=== PATIENT | female | born 1935 | race African-American/Black ===

== ENCOUNTER → 2016-10-10 | Outpatient (CLI) | payer MEDICARE, OTHER ==
[~2016-10-10] MED LIST: ACETAMINOPHEN PO; APRESOLINE PO; ASPIRIN81 M2 PO; BENADRYL25 M1 PO; BRILINTA90 MG PO; BUMEX1 MG PO; CENTRUM; CENTRUM PO; CHLORASEPTIC177 M1 MM; CHLORASEPTIC177 M1 PO; CLARITIN10 M3; CLARITIN10 M3 PO; CLOPIDOGREL75 MG PO; COZAAR PO; DEPAKOTE250 MG PO; DIFLUCAN PO; DOCUSATE SODIU100 MG PO; EXELON PO; EXELON6 MG PO; FLONASE 0.05% N16 G1; FLORASTORKIDS250 MG PO; GUAIFENESIN DM118 ML PO; HCTZ PO; HYDROCODON-ACE1 EAC7 PO; HYDROCODONE-APA1 T56 PO; IMDUR PO; IMDUR-ER60 M1 PO; IMODIUM2 MG PO; K-DUR10 MEQ PO; KCL PO; LANTUS100 U/ML SUBQ; LEVEMIR SUBQ; LEXAPRO PO; LEXAPRO20 MG PO; LIPITOR PO; LIPITOR40 MG PO; LISINOPRIL2.5 MG PO; LOPRESSOR PO; LORTAB 5-325 M1 EACH PO; MAALOX SUSPENS355 ML PO; MELATONIN10 M2 PO; METOPROLOL TAR25 MG PO; MILK OF MAGNESIA; MILK OF MAGNESIA PO; MUCINEX D ER T1 EAC1 PO; NAMENDA XR1 EACH PO; NAMENDA XR28 MG PO; NAMENDA10 MG; NEURONTIN100 MG PO; NORCO1 TAB 10/3; NOVOLOG100 U/M1; NOVOLOG100 U/M1 SQ; NOVOLOG100 U/ML SUBQ; NOVOLOG100 UNITS/ SUBQ; PANTOPRAZOLE SO40 MG PO; PLAVIX PO; PRILOSEC20 M1 PO; PROTONIX PO; RANITIDINE HCL150 M1; RIVASTIGMINE6 MG PO; ROBITUSSIN DM PO; SINGULAIR PO; SYNTHROID PO; SYNTHROID0.1 MG PO; SYNTHROID75 MCG; TOUJEO SOL300 UNIT/1; TRADJENTA5 MG PO; TRESIBA FL100 UNIT/1 SUBQ; TYL325 PO; TYLENOL325 M1; VITAMIN D-32000 UNI1 PO; VITAMIN D31000 UNIT PO; VITAMIN D50000 UNIT PO; ZANTAC150 M1 PO; ZANTAC150 MG PO; ZOFRAN PO; ZYRTEC PO; ZYRTEC10 M2 PO
--- NOTE | ~2016-10-10 | US77 ---
[facility] A Service of [facility] & [facility] RADIOLOGY TEXT RESULTS PATIENT: JUAN RONDON LOCATION: [facility] : 33 UNIT #: [id number] AGE: [address]: Abraham Hernandez MD SEX: F ORDER DR: [id number] [facility] [address] [place], [place] [address] [id number] O MR#: [id number] Acc #: [id number] NAME: JUAN RONDON : 1935 SEX: F STUDY DATE/TIME: 10/10/2016 14:46 UNIT: [facility] ROOM: STUDY DESCRIPTION: US Kidney Bilateral Complete Attending Physician: Claudy Hernandez M.D. Referring Physician: Claudy Hernandez M.D. Ordering Physician: Claudy Hernandez M.D. Primary Care Physician: Primary Care Physician No MEDICAL IMAGING REPORT This report is preliminary unless electronic signature is present EXAM Renal ultrasound 10/10/2016 HISTORY Chronic kidney disease stage 3. Diabetes and hypertension. FINDINGS The right kidney measures 8.8 cm while the left kidney measures 11.2 cm in longitudinal dimensions. There is no evidence of hydronephrosis or nephrolithiasis. There is a 2.8 cm x 2 cm x 1.9 cm indeterminate hypoechoic lesion on the left kidney. This contains internal echoes and cannot be classified as a cyst. Correlation with either renal MRI with gadolinium or CT scan of the kidneys with contrast using dedicated renal protocol is recommended to exclude renal neoplasm. If the patient's renal function does not improve recommend at a minimum followup renal ultrasound in 6 months to assess the lesion for stability. There is normal renal cortical echogenicity. Images of the bladder are normal. IMPRESSION 1. No evidence of hydronephrosis. 2. 2.8-cm indeterminate hypoechoic lesion on the left kidney. This contains internal echoes and cannot be classified as a cyst. Recommend correlation with either CT scan of the kidneys with contrast using dedicated renal protocol or renal MRI with gadolinium for further evaluation. If the patient's renal function does not improve, at a minimum, followup renal ultrasound should be performed in 6 months to assess the lesion for stability. 3. Images of the bladder are normal. Dictated by... Elias Vinson M.D. THIS IS AN ELECTRONICALLY VERIFIED REPORT [facility] A Service of [facility] RADIOLOGY TEXT RESULTS PATIENT: JUAN RONDON LOCATION: [facility] : 33 UNIT #: [id number] AGE: [address]: Abraham Hernandez MD SEX: F ORDER DR: Elias Vinson M.D. at 10/11/2016 7:41 AM KRT/to TD: 10/10/2016 16:24 JOB #: [id number] MEDICAL IMAGING REPORT Page 1 of 1 COPY
== END | disposition home or self-care (01) ==
LOC: CLAB 13:21
DX: N17.9 Acute kidney failure, unspecified (principal); N18.3 Chronic kidney disease, stage 3 (moderate); N28.89 Other specified disorders of kidney and ureter
CPT/HCPCS: 76770

== ENCOUNTER 2016-12-05 22:56 | Inpatient (IN) | payer MEDICARE, OTHER ==
--- NOTE | ~2016-12-05 | CR72 ---
[facility] A Service of [facility] RADIOLOGY TEXT RESULTS PATIENT: JUAN RONDON LOCATION: [place] [address] : 33 UNIT #: [id number] AGE: [address]: Eladia Guillen MD SEX: F ORDER DR: [id number] [facility] [address] [place], [place] [address] [id number] I MR#: [id number] Acc #: [id number] NAME: JUAN RONDON : 1935 SEX: F STUDY DATE/TIME: 12/06/2016 0:20 UNIT: C3A PCU ROOM: [address] [place] [address] DESCRIPTION: CR Chest Single View Portable Attending Physician: Eladia Guillen M.D. Ordering Physician: Lazarus Santillan Aprn Primary Care Physician: Primary Care Physician No MEDICAL IMAGING REPORT This report is preliminary unless electronic signature is present EXAM Portable chest INDICATION Shortness of air and cough for the past 3 days. PROCEDURE Frontal view chest. COMPARISON 04/06/2016. FINDINGS Cardiomegaly. No dense consolidation, pleural fluid or visible pneumothorax. IMPRESSION No active process. No change from 04/06/2016. Stable cardiomegaly. Dictated by... Karson Lim M.D. THIS IS AN ELECTRONICALLY VERIFIED REPORT Karson Lim M.D. at 12/06/2016 9:53 PM EED/gt TD: 12/06/2016 08:35 JOB #: [id number] MEDICAL IMAGING REPORT [facility] A Service of [facility] RADIOLOGY TEXT RESULTS PATIENT: JUAN RONDON LOCATION: [place] [address] : 33 UNIT #: [id number] AGE: [address]: Eladia Guillen MD SEX: F ORDER DR: Page 1 of 1 COPY
--- NOTE | ~2016-12-05 | CT57 ---
[facility] A Service of [facility] & [facility] RADIOLOGY TEXT RESULTS PATIENT: JUAN RONDON LOCATION: [facility] 337- : 33 UNIT #: [id number] AGE: [address]: Eladia Guillen MD SEX: F ORDER DR: [id number] [facility] [address] [place], [place] [address] [id number] I MR#: [id number] Acc #: [id number] NAME: JUAN RONDON : 1935 SEX: F STUDY DATE/TIME: 12/06/2016 13:07 UNIT: A U ROOM: [facility] STUDY DESCRIPTION: CT Chest Wo Cont Attending Physician: Eladia Guillen M.D. Ordering Physician: Eladia Guillen M.D. Primary Care Physician: Primary Care Physician No MEDICAL IMAGING REPORT This report is preliminary unless electronic signature is present EXAM CT the chest without contrast. INDICATIONS Shortness of breath and chest pain for 2 days. Patient had a chest radiograph performed this morning which showed a possible infiltrate within the right lower lobe. TECHNIQUE Axial CT images were obtained from the thoracic inlet to the dome of the diaphragm. No intravenous contrast material was administered. This CT exam was performed with one or more of the following radiation dose reduction techniques: automatic exposure control, adjustment of mA and/or kV according to patient size, and iterative reconstruction. FINDINGS This patient has an infiltrate within the right lower lobe measuring about 2.3 x 1.5 cm. Given history this is felt to represent pneumonia. There is also some right apical scarring with a small area of nodularity measuring about 4 mm, not significantly changed when compared to December 2014. Thyroid gland is atrophic. Trachea is within normal limits. There is a small hiatal hernia. There are coronary artery calcifications. Thoracic aorta measures within normal size limits. There is a mildly prominent subcarinal lymph node, likely reactive. There is no pleural or pericardial effusion. Patient does have a small fat containing diaphragmatic hernia on the right. Images through the upper abdomen do not demonstrate any aggressive osseous abnormalities. IMPRESSION 1. Abnormality on the patient's chest radiograph corresponds to a 2.3 x 1.5 cm infiltrate, favored to represent pneumonia given history. I [facility] A Service of [facility] & [facility] RADIOLOGY TEXT RESULTS PATIENT: JUAN RONDON LOCATION: [facility] 337-01 : 33 UNIT #: [id number] AGE: [address]: Eladia Guillen MD SEX: F ORDER DR: would, however, suggest a short-term followup exam once the patient has been treated appropriately in order to document resolution of this process. There is also some stable right apical scarring. 2. Small hiatal hernia. 3. Extensive coronary artery calcifications. 4. Small fat-containing right diaphragmatic hernia. 5. Small incidentally noted bilateral renal cysts. Dictated by... Marina Caballero M.D. THIS IS AN ELECTRONICALLY VERIFIED REPORT Marina Caballero M.D. at 12/06/2016 10:41 PM AFF/cs TD: 12/06/2016 20:52 JOB #: [id number] MEDICAL IMAGING REPORT Page 1 of 1 COPY
--- NOTE | ~2016-12-05 | CO ---
Unit #: [id number] #: [id number] Patient: JUAN RONDON [id number] [address] [place], [place] [address] [id number] I MR#: [id number] NAME: JUAN RONDON ROOM: 337 Age: 81 Sex: F Admission Date: 12/06/2016 : 1935 Attending Physician: Eladia Guillen M.D. CONSULTATION REPORT REASON FOR CONSULTATION Renal failure and metabolic acidosis. HISTORY OF PRESENT ILLNESS The patient is an 81-year-old female with significant past medical history of some chronic kidney disease, but mainly admitted because of the confusion, some change in mental status, and diagnosed as UTI and later also has some lung infiltrate diagnosed as pneumonia on antibiotics and improving slowly, but when I saw, the patient was very sleepy, unable to wake up properly, but yesterday as per nurse, the patient was alert and oriented. Baseline creatinine 1.4, found to be 1.7 with slight metabolic acidosis and also with some electrolyte abnormality with increased creatinine. PAST MEDICAL HISTORY As per record is consistent with chronic kidney disease, progressive dementia, congestive heart failure with ejection fraction of around 50%. History of CVA with left-sided weakness. The patient is mainly bedridden with history of bacteremia in the past. Carotid stenosis. Pulmonary emboli. HOME MEDICATIONS Home medications were reviewed that did include, the patient is on low-dose lisinopril at 2.5 mg a day. On Namenda, hydrocodone, metoprolol, Tradjenta, singular, aspirin, Protonix, and Pyridium. FAMILY HISTORY Noncontributory. SOCIAL HISTORY The patient is a resident of assisted living. REVIEW OF SYSTEMS Unable to obtain from the patient. PHYSICAL EXAMINATION GENERAL: The patient is still kind of unable to wake up, but I was told that otherwise early in the morning, she is very sleepy otherwise she is fine. VITAL SIGNS: The patient's blood pressure is 180/85, pulse is 76, respiratory rate 16, temperature 97.6, and oxygen saturation 100%. HEAD AND NECK: Pupils are reactive to light. Extraocular movements are intact. Mucous membranes are moist. Unit #: [id number] #: [id number] Patient: JUAN RONDON NECK: Supple. CHEST: The patient has bilateral air entry. No wheeze. No crackles. HEART: Regular rate and rhythm. ABDOMEN: Soft and nontender. EXTREMITIES: Nontender. Peripheral pulses are palpable. NEUROLOGIC: The patient is moving extremities, but as she was not waking up, unable to follow any command. DIAGNOSTIC STUDIES LABORATORY RESULTS: Showed the patient's creatinine is 1.7, potassium 3.3, bicarb 20, sodium 139, BUN 33, and calcium 9.4. ASSESSMENT AND PLAN 1. Acute kidney injury in a patient with chronic kidney disease stage 3. 2. Chronic kidney disease stage 3. 3. Mild metabolic acidosis secondary to acute kidney injury. 4. Anemia secondary to chronic kidney disease. 5. Pneumonia and urinary tract infection are slowly improving. DISCUSSION Likely, the patient has chronic kidney disease. Some fluctuation in creatinine, most likely due to underlying hemodynamics and acute infection. The patient is also on diuretics that can also fluctuate the patient's creatinine. Continue with the same medicine. Blood pressures running high recently. We will add Norvasc 2.5 mg a day to improve blood pressure better. We will now try to avoid ABY inhibitor in this elderly female because of the maybe risk was slightly more than benefits. The patient did have a renal ultrasound done in the past that did show some asymmetry in the kidney size. The blood pressure is difficult to control. Then, further workup may be needed, but try to avoid as the patient is a group home patient. Thank you for letting me evaluate this patient. Dictated by... Shannan Ramirez/lola TD: 12/13/2016 12:53 JOB #: [id number] CONSULTATION REPORT Page 1 of 1 X Nilo Patricio MD CONSULTATION REPORT
--- NOTE | ~2016-12-05 | CO ---
Unit #: [id number] #: [id number] Patient: JUAN RONDON [id number] [facility]. [address] [place], [place] [address] [id number] I MR#: [id number] NAME: JUAN RONDON ROOM: 337 Age: 81 Sex: F Admission Date: 12/06/2016 : 1935 Attending Physician: Eladia Guillen M.D. Primary Care Physician: No Primary Care Physician Consultation Date: 12/09/2016 CONSULTATION REPORT REASON FOR CONSULTATION Echocardiogram per Dr. Garner. HISTORY OF PRESENTING ILLNESS This is an 81-year-old, -[place] female who lives in a fci. She has a prior cardiac history of Non-STEMI in November of 2015 and, at that time, it was decided to just treat her medically. No cardiac cath was done. According to the patient's family, she had a cardiac cath done in the distant past at [facility]. They are unsure of the date. She also has a history of diastolic congestive heart failure, diabetes mellitus, CVA, hypertension, hyperlipidemia, dementia, and frequent UTIs. She presented from the [facility] with mental status changes and a fever. In the ER, the chest x-ray showed no active disease and stable cardiomegaly. A CT of the chest showed right lower lobe infiltrate. There was some pyuria on her urinalysis. Her urine culture to date has no growth. Blood cultures sent on 12/05 have come back positive for coagulase negative Staphylococcus in 2 of 2 sets. Repeat blood cultures on December 08 have no growth to date. We were asked to see her to read an echocardiogram and manage her cardiac care. Patient denies chest pain, tightness, or palpitations. She is somewhat confused and difficult to obtain answers from. PAST MEDICAL HISTORY 1. Coronary artery disease, status post non-STEMI in November 2015. 2. Cardiac cath in distant past at [facility]. 3. Diabetes mellitus. 4. History of CVA. 5. Dementia. 6. Hypertension. 7. Hyperlipidemia. 8. History of diastolic congestive heart failure, ejection fraction 50% and severe mitral regurgitation. 9. Frequent UTIs. 10. Staph. bacteremia, 11/2015, without definite source. 11. Right carotid stenosis, 50% to 60%. 12. Hypothyroidism. 13. GERD. 14. History of pulmonary embolus. 15. Dysphagia. SURGICAL HISTORY Hand surgery, hernia repair, appendectomy, and hysterectomy. ALLERGIES Sulfa. Unit #: [id number] #: [id number] Patient: JUAN RONDON HOME MEDICATIONS 1. Colace 100 mg p.o. daily. 2. Namenda XR 28 mg p.o. daily. 3. Milk of magnesia 30 mL p.o. daily. 4. Synthroid 100 mcg p.o. daily. 5. Vitamin D3 1000 units p.o. daily. 6. Imdur ER 30 mg p.o. daily. 7. Tradjenta 5 mg p.o. daily. 8. Exelon 6 mg p.o. twice a day. 9. Lisinopril 2.5 mg daily. 10. Singulair 10 mg p.o. daily. 11. Aspirin 81 mg p.o. daily. 12. Protonix 40 mg p.o. daily. 13. Bumex 1 mg p.o. twice a day. 14. Acetaminophen 650 mg p.o. every 4 hours as needed for pain or fever. 15. Zofran 4 mg p.o. every 6 hours as needed for nausea. 16. Toujeo SoloStar 15 units every morning. 17. K-Dur 10 mEq p.o. daily. 18. Centrum 1 p.o. daily. 19. Zyrtec 10 mg p.o. daily. 20. Brilinta 90 mg p.o. twice a day. 21. Neurontin 100 mg p.o. twice a day. 22. Lipitor 40 mg p.o. at bedtime. 23. Melatonin 10 mg p.o. at bedtime. 24. Benadryl 25 mg p.o. every 6 hours as needed for itching. 25. Lortab 5/325 mg tablets 1 p.o. every 8 hours as needed for pain. 26. Lexapro 10 mg p.o. daily. 27. Metoprolol tartrate 25 mg p.o. twice a day. 28. NovoLog 7 units subcu. 3 times a day with meals. SOCIAL HISTORY Patient lives in a fci. No illicit drugs, alcohol, or tobacco use. FAMILY HISTORY Unable to obtain. REVIEW OF SYSTEMS Positive for weakness and fatigue, otherwise negative except for what was listed in the HPI. PHYSICAL EXAMINATION GENERAL: The patient is an 80-year-old, -[place] female. She is resting in bed in no acute distress. VITAL SIGNS: Temperature 100.8, heart rate 100, respiratory rate 20, blood pressure 148/74, 59 inches in height, and weight 66 kg. HEENT: Head is atraumatic and normocephalic. Pupils are equal and round. Mucous membranes are moist. NECK: Supple. Trachea is midline. Negative for JVD. HEART: S1 and S2. Regular rate and rhythm. Positive systolic murmur at left sternal border. LUNGS: Clear and diminished in bases. Nonlabored respirations. ABDOMEN: Soft and nontender. Positive bowel sounds. EXTREMITIES: Pulses are palpable. No pedal edema. No cyanosis. NEUROLOGIC: Awake. Able to answer some questions. Moves all extremities equally. Unit #: [id number] #: [id number] Patient: JUAN RONDON DIAGNOSTIC STUDIES LABORATORY: Sodium 136, potassium 3.9, chloride 104, BUN 21, creatinine 1.5, and glucose 191. Hemoglobin 10, hematocrit 31.3, white blood cell count 7.4, and platelets 139. Blood cultures on 12/05/2016 positive for CN Staphylococcus in 2 of 2. Repeat blood cultures on 12/08/2016: No growth to date. Urine culture: No growth after 48 hours. IMAGING: Chest x-ray showed stable cardiomegaly and no acute disease. Chest CT showed infiltrate in the right lower lobe consistent with pneumonia, small hiatal hernia, extensive coronary artery calcifications, small fat-containing right diaphragmatic hernia, and incidentally noted small bilateral renal cysts. CARDIOVASCULAR: EKG shows sinus rhythm with a ventricular rate of 78 and nonspecific T wave abnormalities. Two-dimensional echocardiogram is pending. ABHI done in November 2015 was negative for vegetation, LV EF 50%, and severe mitral regurgitation. ASSESSMENT 1. CN Staph. bacteremia. 2. UTI. 3. Coronary artery disease with history of non-STEMI in November 2015. 4. Diabetes mellitus. 5. History of CVA. 6. Dementia. 7. Hypertension. 8. Hyperlipidemia. PLAN 1. We will stop Brilinta. 2. Conservative medical management. 3. Await echocardiogram results. Thank you for asking us to see this patient. We appreciate the consult. Dictated by... Gertrude Foster APRN for Shannan Green/ernst TD: 12/10/2016 12:46 JOB #: [id number] Unit #: [id number] #: [id number] Patient: JUAN RONDON CONSULTATION REPORT Page 1 of 1 X X CONSULTATION REPORT
--- NOTE | ~2016-12-05 | CO ---
Unit #: [id number] #: [id number] Patient: JUAN RONDON [id number] [address] [place], [place] [address] [id number] MR#: [id number] NAME: JUAN RONDON ROOM: 337 Age: 81 Sex: F Admission Date: 12/06/2016 : 1935 Attending Physician: Eladia Guillen M.D. Primary Care Physician: No Primary Care Physician Consultation Date: 12/11/2016 CONSULTATION REPORT REASON FOR CONSULT Pneumonia. HISTORY OF PRESENT ILLNESS This is an 81-year-old -[place] female who is well known to our service from multiple previous admissions with past medical history significant for dementia, coronary artery disease, hypertension, diabetes, who presented to the emergency room from the [facility] with altered mental status and concern of pyelonephritis. Patient was noted to be increasingly confused at the [facility] and a chest x-ray at that time was suspicious for pneumonia, also her UA was concerning for pyelonephritis. Upon presentation to our facility she had a CT hest that is confirmed right-sided pneumonia. Currently patient is on room air and she is alert, oriented to herself and family. She appears very pleasant, in no acute distress. Patient is bedbound at baseline and sometimes she can get up to chair with assistance. She does not wear oxygen at home. PAST MEDICAL HISTORY 1. Dementia. 2. Coronary artery disease. 3. Hypertension. 4. Diabetes mellitus. 5. Depression. 6. Hyperlipidemia. 7. Previous cerebrovascular accident, likely hemorrhagic infarcts with left-sided weakness. 8. Recurrent toxic-metabolic encephalopathy. 9. Staph bacteremia in December 2015. 10. Right carotid stenosis. 11. Hypothyroidism. 12. GERD. 13. Depression. 14. Dysphagia. 15. History of pulmonary embolus. PAST SURGICAL HISTORY 1. Hand surgery. 2. Hernia repair. 3. Appendectomy. Unit #: [id number] #: [id number] Patient: JUAN RONDON 4. Hysterectomy. ALLERGIES Sulfa. HOME MEDICATION 1. Namenda. 2. Vitamin D. 3. Multivitamin. 4. Zyrtec. 5. Brilinta. 6. Potassium. 7. Bumex. 8. Exelon. 9. Neurontin. 10. Insulin. 11. Lipitor. 12. Robitussin. 13. Zofran. 14. Hydrocodone. 15. Lopressor. 16. Pyridium. 17. Tradjenta. 18. Singulair. 19. Aspirin. 20. Protonix. 21. Synthroid. FAMILY HISTORY Noncontributory at this age. SOCIAL HISTORY Patient lives at the [facility]. No history of alcohol, drug abuse or smoking. REVIEW OF SYSTEMS Unable to obtain from the patient. PHYSICAL EXAMINATION GENERAL APPEARANCE: Patient is very pleasant. VITAL SIGNS: Temperature 97.9, respiratory rate 17, O2 saturation 98% on room air. HEENT: Normocephalic and atraumatic. PERRLA. EOMI. NECK: Supple. No JVD. No lymphadenopathy. CHEST: Shallow breath sounds with no obvious rhonchi. HEART: S1, S2. No murmur, gallops or rubs. ABDOMEN: Soft, nontender. Bowel sound is positive. No hepatosplenomegaly. EXTREMITIES: No edema or cyanosis. DERRICK MAN: Patient is awake, alert. She is oriented to herself and family. She has a left leg weakness but she was able to wiggle her toes. DIAGNOSTIC STUDIES LABORATORY: Creatinine 1.7, potassium 3.3, white blood count 9.0, hemoglobin 10.0. IMAGING: CT scan of her chest is consistent with pneumonia. Unit #: [id number] #: [id number] Patient: JUAN RONDON ASSESSMENT 1. Gram-negative pneumonia. 2. Toxic-metabolic encephalopathy. 3. Dementia. 4. Hypertension. 5. Coronary artery disease. 6. Diabetes. 7. Diastolic heart failure. PLAN 1. Currently patient is hemodynamically stable on room air. Her CT chest is reviewed by me and is consistent with mass that suggests likely pneumonia since this is a new finding and she has multiple imaging in the past that were negative for that finding. Given the above CT finding she will still need a followup CT chest in six weeks. This could be arranged by Dr. Gray as an outpatient in the [facility] as she visits there as an admitting doctor. 2. Will continue patient on bronchodilator and mucolytics. 3. Will try to avoid steroid if possible since she is prone always for confusion. 4. DVT prophylaxis. I discussed the care with family and they are in agreement. Dictated by... Celia Pascual M.D. EA/greyson TD: 12/11/2016 20:22 JOB #: [id number] CONSULTATION REPORT Page 1 of 1 X CELIA MCCRACKEN MD X CONSULTATION REPORT
--- NOTE | ~2016-12-05 | HP ---
Unit #: [id number] #: [id number] Patient: JUAN RONDON [id number] [address] [place], [place] [address] [id number] MR#: [id number] NAME: JUAN RONDON ROOM: 337 Age: 81 Sex: F Admission Date: 12/06/2016 : 1935 Attending Physician: Brianna Elliott M.D. Primary Care Physician: No Primary Care Physician HISTORY AND PHYSICAL CHIEF COMPLAINT Confusion secondary to toxic metabolic encephalopathy from pyelonephritis. HISTORY This pleasant 81-year-old female with AODM, CAD, dementia, previous CVA, was sent by the correction for confusion. The patient lives at [facility]. She was noted to be increasingly confused and a chest x-ray recently performed was suspicious for a small right basilar infiltrate/nodule. The patient was given Levaquin yesterday. Family requested the patient be seen in the ER for further evaluation. The patient is quite confused. Her chest x-ray here was read as negative for infiltrate. However, a urinalysis shows significant pyuria. She does have a history of recurrent E. coli UTIs sensitive to third and fourth generation cephalosporins in the past. A renal ultrasound performed 10/[address] Hernandez, showed an indeterminate hypoechoic lesion measuring 2.8 cm in the left kidney. Recommended repeat ultrasound in six months or CT scan of the kidneys with contrast. PAST MEDICAL HISTORY 1. Progressive dementia. 2. CAD with ejection fraction 50% and severe mitral regurgitation. 3. Hypertension. 4. AODM. 5. Depression. 6. Hyperlipidemia. 7. 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 8. Previous admission for toxic metabolic encephalopathy associated with infection. 9. Staph bacteremia 11/2015 without definite source. ABHI was negative for vegetation and did reveal an ejection fraction of 50% with severe mitral regurgitation. 10. Right carotid stenosis, 50% to 60%. 11. Hypothyroidism. 12. GERD. 13. Major depressive disorder. 14. Dysphagia. 15. History of pulmonary embolus. 16. BTL. 17. Hand surgery. 18. Hernia repair. 19. Appendectomy. 20. Hysterectomy. Unit #: [id number] #: [id number] Patient: RONDON,JUAN ALLERGIES Sulfa. CARE HOME MEDICATIONS The copy brought in is very difficult to read as it did not copy well. It lists: 1. Namenda XR 28 mg daily. 2. Vitamin D 1000 units daily. 3. Multivitamin daily. 4. Zyrtec 10 mg daily. 5. Brilinta 10 mg b.i.d. 6. Potassium 10 mEq daily. 7. Bumex 1 mg b.i.d. 8. Exelon 6 mg b.i.d. 9. Neurontin 100 mg b.i.d. 10. Insulin, uncertain dose, with meals. 11. Lipitor 40 mg q. h.s. 12. Medication for insomnia that I can't read. 13. P.r.n. Tylenol. 14. P.r.n. Maalox. 15. Robitussin. 16. MOM. 17. Zofran. 18. Hydrocodone. 19. Metoprolol 25 mg b.i.d. 20. The patient was recently on Augmentin. 21. He was taking Floranex, one tablet b.i.d. 22. Pyridium 200 mg t.i.d. x2 days. 23. Levaquin 500 mg daily. 24. Tradjenta 5 mg daily. 25. Singulair 10 mg daily. 26. Aspirin 81 mg daily. 27. Protonix 40 mg daily. 28. Synthroid 0.1 mg daily. 29. Possibly Imdur 30 mg daily. There are other medications on the sheet that I am unable to read, however, and will request a repeat MAR. FAMILY HISTORY Noncontributory given patient's age. SOCIAL HISTORY The patient lives at [facility]. Does not drink alcohol or smoke tobacco. REVIEW OF SYSTEMS Difficult to obtain as the patient is quite confused. PHYSICAL EXAMINATION GENERAL APPEARANCE: Confused, moderately obese 81-year-old female, currently in no acute distress. VITAL SIGNS: Temperature 98.9, pulse 82, respirations 17, blood pressure 142/116. O2 saturation 95% on room air. HEENT: Eyes PERRLA. Pharynx is benign. NECK: A little stiff but patient is stiff throughout. CHEST: Clear. CARDIAC: Normal S1 and S2 without definite murmur on exam. Unit #: [id number] #: [id number] Patient: JUAN RONDON ABDOMEN: Bowel sounds are present. There is lower abdominal tenderness without rebound or guarding. No definite hepatosplenomegaly or masses. EXTREMITIES: With no edema. Pedal pulses are present. NEUROLOGIC: The patient is confused. Seems to be nonverbal at present. She is able to move her extremities except that the left leg appears to be weaker than the right. DIAGNOSTIC STUDIES LABORATORY: Admission labs - hematocrit is 36.2, white blood count is 10.7, normal platelet count. SMA-12 - glucose 123, alkaline phos. 98, lactic acid is normal. Cardiac markers are negative. Urinalysis - positive leukocyte esterase, nitrates, protein with 10-25 red cells, 200-300 white cells, 3+ bacteria. IMAGING: Chest x-ray - cardiomegaly which is stable. CARDIOVASCULAR: EKG - normal sinus rhythm, rate 84, nonspecific ST wave abnormalities. ASSESSMENT 1. Toxic metabolic encephalopathy. 2. Pyelonephritis with history of Escherichia coli urinary tract infections in the past. 3. Abnormal renal ultrasound with a hypoechoic lesion in October, followed by Dr. Hernandez. 4. Dementia. 5. Coronary artery disease with previous non-ST elevation myocardial infarction, ejection fraction 50%, severe mitral regurgitation. 6. Adult onset diabetes mellitus. 7. Hypertension. 8. Hypothyroidism. 9. History of dysphagia. PLANS 1. Need for MAR to be re-faxed from the correction as it is difficult to read. 2. Cefepime pending urine cultures. 3. SCDs. 4. Sliding scale insulin. 5. The patient is DNR per the papers from the correction. 6. Further history when family returns to the ER. They were not present when I arrived but they did speak with the ER staff. Dictated by Brianna Elliott M.D. AML/rhianna TD: 12/06/2016 05:26 JOB #: [id number] CC: Figueroa Medina M.D. Unit #: [id number] #: [id number] Patient: JUAN RONDON HISTORY AND PHYSICAL Page 1 of 1 X Brianna Elliott MD HISTORY AND PHYSICAL
--- NOTE | ~2016-12-05 | CR72 ---
[facility] A Service of [facility] RADIOLOGY TEXT RESULTS PATIENT: JUAN RONDON LOCATION: [facility] 337-01 : [birth year] UNIT #: [id number] AGE: [address]: Eladia Guillen MD SEX: F ORDER DR: [id number] [facility] [address] [facility]. [place], [place] [address] [id number] I MR#: [id number] #: [id number] NAME: JUAN RONDON : 1935 SEX: F STUDY DATE/TIME: 12/12/2016 13:05 UNIT: [address] ROOM: [facility] STUDY DESCRIPTION: CR Chest Single View Portable Attending Physician: Eladia Guillen M.D. Ordering Physician: Eladia Guillen M.D. Primary Care Physician: Primary Care Physician No MEDICAL IMAGING REPORT This report is preliminary unless electronic signature is present EXAM Portable chest HISTORY Cough and shortness of air for 1 week. Hypertension. FINDINGS Cardiac size is near the upper limits of normal, accentuated by low lung volumes. Pulmonary vascularity is normal. Small, calcified bilateral hilar nodes. No airspace infiltrates. IMPRESSION No acute findings. Dictated by... Anton Tatum M.D. THIS IS AN ELECTRONICALLY VERIFIED REPORT Anton Tatum M.D. at 12/12/2016 11:50 PM DFL/psc TD: 12/12/2016 21:17 JOB #: [id number] MEDICAL IMAGING REPORT Page 1 of 1 COPY
--- NOTE | ~2016-12-05 | EKG ---
PATIENT: JUAN RONDON UNIT #: [id number] Ventricular Rate: 84 BPM Atrial Rate: 84 BPM P-R Interval: 186 ms QRS Duration: 82 ms Q-T Interval: 452 ms QTC Calculation(Bezet): 534 ms P [place]: 52 degrees Calculated R [place]: 7 degrees Calculated T [place]: 0 degrees Diagnosis Line: Normal sinus rhythm Diagnosis Line: Nonspecific ST and T wave abnormality Diagnosis Line: Abnormal ECG Diagnosis Line: When compared with ECG of 05-DEC-2016 23:56, Diagnosis Line: (unconfirmed) Diagnosis Line: Premature ventricular complexes are no longer Diagnosis Line: Present Diagnosis Line: Confirmed by REAGAN CAROLINA MD ([id number]) on Diagnosis Line: 12/06/2016 3:20:39 PM INTERPRETING MD: CAITY CERVANTES
--- NOTE | ~2016-12-05 | DS ---
Unit #: [id number] #: [id number] Patient: JUAN RONDON [id number] [facility] [address] [facility]. [place], [place] [address] [id number] I MR#: [id number] NAME: JUAN RONDON ROOM: 337 Age: 81 Sex: F Admission Date: 12/06/2016 : 1935 Discharge Date: 12/12/2016 Attending Physician: Eladia Guillen M.D. Primary Care Physician: No Primary Care Physician DISCHARGE SUMMARY REASON FOR ADMISSION Toxic metabolic encephalopathy secondary to presumed pyelonephritis. HISTORY OF PRESENT ILLNESS/HOSPITAL COURSE The patient is a very pleasant 81-year-old female with a history of multifactorial dementia secondary to prior CVA, Alzheimer, as well as advanced age, insulin-dependent diabetes. She presented secondary to acute onset of confusion. She was noted to have a chest x-ray performed at the [facility] showing concern for possible right basilar infiltrate, and her initial urinalysis was also abnormal; therefore, she was transferred to [facility] for evaluation of the same. Through her hospital course, patient underwent noncontrast CT chest in concern for possible aspiration on 12/06/2016. Findings were consistent with an infiltrate in the right lower lobe measuring about 2.3 cm x 1.5 cm, concern for possible aspiration. Short-term followup exam was recommended. Repeat CT in approximately 4-6 weeks was recommended. The patient's routine emergency planner is Dr. Garcia and associates. Through hospital course, urine culture ultimately did not grow any bacterial growth; however, initial set of blood cultures did grow Staphylococcus epidermidis 2/2. In regard to positive blood culture results, consultation was placed to infectious disease service. Through her hospital course, patient was placed on vancomycin, as well as cefepime. Patient also underwent two-D echocardiogram this hospital admission for concern for possible infective endocarditis. There were no acute vegetations noted. Ejection fraction commented on was 50% to 55%. Moderate concentric left ventricular hypertrophy was also noted, and tricuspid (1) aortic valve was also noted. At this point in time patient appears clinically stable for transfer back to [facility]. We did have speech therapy evaluate the patient in regard to concern for possible underlying aspiration. They have appropriately given modifications in regard to her diet. Patient will be transitioned back to [facility] for ongoing care. She is noted to be DNR status. Overall, her condition is guarded. Of note, through this particular hospital course, we did place consultation to [facility]. Dr. Garner saw and evaluated the patient in regard to her chronic anticoagulation with Brilinta. She felt as though the risk outweighed the benefit and there was no further Unit #: [id number] #: [id number] Patient: JUAN RONDON indication for Brilinta at this present time; therefore, that will be discontinued at time of discharge. FINAL DISCHARGE DIAGNOSES 1. Acute toxic metabolic encephalopathy. 2. Presumed urinary tract infection on admission with urine culture negative. 3. Bacteremia 2/2 with repeat blood culture negative. 4. Dysphagia. 5. Dementia, multifactorial in origin. 6. Prior history of cerebrovascular accident. 7. Alzheimer. 8. Presumed aspiration pneumonia. 9. Morbid obesity. 10. Chronic immobility syndrome. The patient has not ambulated x2 to 3 years. 11. Coronary artery disease with prior stent placement. No longer requiring Brilinta. 12. Anemia. Baseline hemoglobin approximately 9-10. 13. Chronic kidney disease. Baseline creatinine between 1.4 to 1.8, followed by Dr. Hernandez and associates as an outpatient. DISCHARGE DISPOSITION care home. DISCHARGE MEDICATIONS 1. DuoNeb aerosol solution q.6 scheduled. 2. Tylenol 650 mg q.4 p.r.n. 3. Lexapro 10 mg daily. 4. Zofran 4 mg q.6 p.r.n. 5. Zyrtec 10 mg daily. 6. Benadryl 25 mg q.6 p.r.n. 7. Tessalon Perles 200 mg p.o. q.8 x5 days. 8. Lopressor 25 mg p.o. b.i.d. 9. Milk of Magnesia 30 mL p.o. daily. 10. Namenda XR 28 mg daily. 11. Bumex 1 mg daily. 12. Lipitor 40 mg q.h.s. 13. Toujeo SoloSTAR 15 units subcu q.a.m. 14. NovoLog 7 units t.i.d. with meals. 15. Multivitamin daily. 16. Aspirin 81 mg daily. 17. Castella 5/325 mg 1 tablet p.o. q.8 p.r.n. 18. Exelon 6 mg p.o. b.i.d. 19. Protonix 40 mg daily. 20. Potassium chloride 10 mEq daily. 21. Synthroid 100 mcg daily. 22. Imdur 30 mg daily. 23. Vitamin D 1,000 units daily. 24. Antibiotics to be determined by ID service prior to discharge. PROGNOSIS Overall long-term prognosis of this patient is guarded. Family is well aware recurrent hospital admissions, as well as chronic immobile state, put this patient's life expectancy likely less than 1 year. Unit #: [id number] #: [id number] Patient: JUAN RONDON Dictated by... Shannan Bojorquez/alexx TD: 12/12/2016 11:34 JOB #: [id number] DISCHARGE SUMMARY Page 1 of 1 X Eladia Guillen MD X DISCHARGE SUMMARY
--- NOTE | ~2016-12-05 | CO ---
Unit #: [id number] #: [id number] Patient: JUAN RONDON [id number] [address] [address] [id number] I MR#: [id number] NAME: JUAN RONDON ROOM: 337 Age: 81 Sex: F Admission Date: 12/06/2016 : 1935 Attending Physician: Eladia Guillen M.D. Primary Care Physician: Shayla Primary Care Physician Requesting Physician: Eladia Guillen M.D. Consultation Date: 12/07/2016 CONSULTATION REPORT REASON FOR CONSULTATION Positive blood cultures. HISTORY OF PRESENT ILLNESS This is an 81-year-old female with a history of diabetes, coronary artery disease, dementia, previous CVA, immobility, who has been in a snf for four years. She was admitted two days ago with fever, confusion and cough. Initial workup showed possible pneumonia and UTI. She was started on Cefepime. Subsequently blood culture grew Gram-positive cocci in clusters for which vancomycin was added and I was asked to see her in consultation. Patient currently stable. Her daughter is at the bedside. Patient is having bouts of coughing but fever is coming down. Reviewing her medical record from snf it became apparent that she was taking levofloxacin and Augmentin for possible UTI which was started two days earlier. Patient does not have an indwelling Tafoya catheter or any central or PICC line. There is no other medical or surgical instrument maker in place as per the patient's daughter. She did have modest leukocytosis which is improving but renal functions appear to be normal. Her UA indeed shows pyuria. Blood cultures are negative. The patient's main symptom at this time appears to be fever and coughing with some confusion although she does have underlying baseline dementia. She does not have any obvious skin breakdown and there are no open wounds. PAST MEDICAL HISTORY Dementia, immobility, coronary artery disease, hypertension, diabetes, depression, hyperlipidemia, previous multiple CVAs, previous Staph aureus bacteremia in November of 2015 without any obvious source, carotid stenosis, hypothyroidism, GERD, major depression, dysphagia, history of pulmonary embolism, tubal ligation, hand surgery, hernia repair, appendectomy and hysterectomy. DRUG ALLERGIES Sulfa. CUSTODIAL MEDICATIONS Namenda, vitamin D, multivitamin, Zyrtec, Brilinta, potassium, Bumex, Exelon, Neurontin, insulin, Lipitor, Robitussin, milk of magnesia, Zofran, hydrocodone, metoprolol, Augmentin, Levaquin, Floralax, Pyridium, Tradjenta, Singulair, aspirin, Protonix, Synthroid, Imdur. HOSPITAL MEDICATIONS In the hospital she is on Protonix, vancomycin, cefepime, Namenda, Imdur, Synthroid, Exelon, aspirin, Brilinta, Lipitor, Lexapro, metoprolol, Unit #: [id number] #: [id number] Patient: JUAN RONDONLog. As far as antibiotics are concerned she is on Cefepime and vancomycin. FAMILY HISTORY Not contributory to the current illness and at her current age. SOCIAL HISTORY She lives in snf, no history of alcohol, drug or tobacco abuse. She is bedridden and does not ambulate at all. REVIEW OF SYSTEMS Systemic review difficult to obtain. Chart was reviewed. Discussions were held with the nursing staff and the patient's family. Main symptom which lead to her admission was fever of 104 with cough and more confusion. There was no obvious chest pain, abdominal pain, dysuria, diarrhea, open wounds, swollen painful joints (1) . PHYSICAL EXAMINATION GENERAL: Physical examination reveals an obese, elderly white female who is awake but pleasantly confused. She does not appear to be in any distress at this time. VITAL SIGNS: T-max 101.2 on admission. Current temperature is 98. Heart rate 87. Respiration 20. Blood pressure 143/60. SKIN: She has a peripheral IV site which looks fine. HEENT: Oral mucosa is normal. She is edentulous. NECK: Neck is supple. There is no edema bilaterally. There is no evidence of cellulitis or any septic arthritis. LUNGS: Her lungs are clear to percussion and auscultation. HEART: Sounds are normal. There is no murmur. ABDOMEN: Grossly obese, soft and nontender. There is no rebound or guarding. Bowel sounds are normal. NEUROLOGIC: Neurologically she is pleasantly confused and disoriented. According to the daughter this is her usual mental status. She is able to move all four extremities. DIAGNOSTIC STUDIES LABORATORY: Hemoglobin A1C is 8. Urine culture negative. TSH 5.3. Sodium 135, potassium 3.9, chloride 104, CO2 21, glucose 196, BUN 17, creatinine 1.7. Liver function tests are normal. White count is 10, hematocrit 10.1, hematocrit 32, platelets 151. Blood cultures 2/2 sets obtained 15 minutes apart are showing Gram-positive cocci. Identification is pending. Lactic acid 1.2. Urinalysis shows pyuria. IMAGING: Chest CT shows an area of consolidation in the right lower lobe with measures 1.5 x 2.3. It appears as an infiltrate but underlying mass is difficult to exclude. IMPRESSION Gram-positive cocci bacteremia, source unclear. This could either be primary bacteremia and/or endocarditis or possibly secondary bacteremia due to a pneumonia in the right lower lobe; however, incidental lung nodule or mass is difficult to exclude, the bacteremia being a separate finding. RECOMMENDATIONS At this time while I agree with vancomycin and cefepime pending ID of the Gram-positive cocci I would repeat blood cultures, order a2D echocardiogram. Further recommendation will follow. Unit #: [id number] #: [id number] Patient: JUAN RONDON Dictated by... Shannan Hall/greyson TD: 12/07/2016 21:17 JOB #: [id number] CONSULTATION REPORT Page 1 of 1 X Enrrique Moreno MD CONSULTATION REPORT
[~2016-12-05 22:56] MED LIST changes: -BENADRYL25 M1 PO; -BRILINTA90 MG PO; -CENTRUM PO; -DEPAKOTE250 MG PO; -EXELON PO; -FLORASTORKIDS250 MG PO; -HYDROCODON-ACE1 EAC7 PO; -IMDUR PO; -KCL PO; -MELATONIN10 M2 PO; -METOPROLOL TAR25 MG PO; -NOVOLOG100 UNITS/ SUBQ; -PANTOPRAZOLE SO40 MG PO; -TRESIBA FL100 UNIT/1 SUBQ; -TYL325 PO; -VITAMIN D31000 UNIT PO; -ZYRTEC PO; -ZYRTEC10 M2 PO
[2016-12-06 00:36] LABS: BASOPHIL% 0.4 % (0-2.5); EOSINOPHIL# 0.2 X10e3 (0-0.7); EOSINOPHIL% 1.8 % (0.0-7.0); HEMATOCRIT 36.2 % (35.0-45.0); HEMOGLOBIN 11.3 gm/dL (12.0-16.0); LYMPHOCYTE% 18.9 % (17.0-45.0); MEAN CELL VOLUME 79.7 FL (83-96); MEAN CORPUSCULAR HEMOGLOBIN 24.9 PG (28-34); MEAN CORPUSCULAR HGB CONC 31.2 g/dL (30-36); MEAN PLATELET VOLUME 8.8 FL (6.5-11.5); MONOCYTE% 9.7 % (3.0-12.0); NEUTROPHIL# 7.4 X10e3 (1.5-7.1); NEUTROPHIL% 69.2 % (40-75); PLATELET COUNT 183 X10e3 (140-420); RED BLOOD COUNT 4.54 X10e (3.90-5.30); RED CELL DISTRIBUTION WIDTH 15.4 % (11.0-15.5); WHITE BLOOD COUNT 10.7 X10e3 (4.0-10.5)
[2016-12-06 00:37] LABS: DIFF IND NO
[2016-12-06 00:47] LABS: POC - CKMB <1.0 ng/mL (0.0-7.9); POC - TROPONIN <0.05 ng/mL (<=0.05)
[2016-12-06 00:58] LABS: ALBUMIN SERUM 3.5 g/dL (3.5-5.0); BILIRUBIN, DIRECT 0.1 mg/dL (0.0-0.2); BILIRUBIN,INDIRECT 0.3 mg/dL (0.0-0.9); BILIRUBIN,TOTAL 0.4 mg/dL (0.2-2.0); CALCIUM SERUM 9.5 mg/dL (8.4-10.2); CREATININE SERUM 1.4 mg/dL (0.6-1.4); GLOM FILT RATE Estimated 40.2 mL/min (>60); POTASSIUM 4.2 mmol/L (3.5-5.1); PROTEIN TOTAL SERUM 7.4 g/dL (6.0-8.3)
[2016-12-06 01:50] LABS: URINE SOURCE CATH
[2016-12-06 01:55] LABS: URINE APPEARANCE CLOUDY; URINE BILIRUBIN NEG (NEG); URINE BLOOD 2+ (NEG); URINE COLOR YELLOW; URINE GLUCOSE NEG (NEG); URINE KETONE NEG (NEG); URINE LEUKOCYTE ESTERASE 2+ (NEG); URINE NITRATE POS (NEG); URINE PH 5.5 (5-8); URINE PROTEIN TRACE (NEG); URINE SPECIFIC GRAVITY 1.021 (1.003-1.035); URINE UROBILINOGEN 0.2 MG/DL (NEG)
[2016-12-06 01:58] LABS: CULTURE INDICATED? YES; URINE BACTERIA AUWI 3+ (NEGATIVE); URINE SQUAMOUS EPITHELIAL CELL OCC /[HPF]; UWBCS1 AUWI 200-300 (0-5)
[2016-12-06] MEDS ORDERED: CENTRUM PO (06:22)
[2016-12-06] MEDS ORDERED: ZYRTEC PO (06:23)
[2016-12-06] MEDS ORDERED: BRILINTA90 MG PO (06:24)
[2016-12-06] MEDS ORDERED: NEURONTIN100 MG PO (06:26)
[2016-12-06] MEDS ORDERED: LIPITOR40 MG PO (06:27)
[2016-12-06] MEDS ORDERED: MELATONIN10 M2 PO (06:29)
[2016-12-06] MEDS ORDERED: BENADRYL25 M1 PO (06:31)
[2016-12-06] MEDS ORDERED: LORTAB 5-325 M1 EACH PO (06:33)
[2016-12-06] MEDS ORDERED: LEXAPRO PO (06:35)
[2016-12-06] MEDS ORDERED: METOPROLOL TAR25 MG PO (06:38)
[2016-12-06] MEDS ORDERED: NOVOLOG100 UNITS/ SUBQ (06:40)
[2016-12-07 04:27] LABS: HEMATOCRIT 32.8 % (35.0-45.0); HEMOGLOBIN 10.1 gm/dL (12.0-16.0); MEAN CELL VOLUME 80.4 FL (83-96); MEAN CORPUSCULAR HEMOGLOBIN 24.8 PG (28-34); MEAN CORPUSCULAR HGB CONC 30.8 g/dL (30-36); MEAN PLATELET VOLUME 8.3 FL (6.5-11.5); RED BLOOD COUNT 4.08 X10e (3.90-5.30); RED CELL DISTRIBUTION WIDTH 15.3 % (11.0-15.5)
[2016-12-07 04:48] LABS: ALBUMIN SERUM 3.3 g/dL (3.5-5.0); BILIRUBIN,TOTAL 0.5 mg/dL (0.2-2.0); BUN/CREATININE RATIO 13.07; CALCIUM SERUM 8.8 mg/dL (8.4-10.2); CREATININE SERUM 1.3 mg/dL (0.6-1.4); GLOM FILT RATE Estimated 43.9 mL/min (>60); MAGNESIUM 1.7 mg/dL (1.6-3.0); POTASSIUM 3.9 mmol/L (3.5-5.1); PROTEIN TOTAL SERUM 6.6 g/dL (6.0-8.3)
[2016-12-09 08:53] LABS: HEMATOCRIT 31.3 % (35.0-45.0); MEAN CELL VOLUME 78.2 FL (83-96); MEAN PLATELET VOLUME 8.5 FL (6.5-11.5); RED BLOOD COUNT 4.01 X10e (3.90-5.30); RED CELL DISTRIBUTION WIDTH 15.1 % (11.0-15.5); WHITE BLOOD COUNT 7.4 X10e3 (4.0-10.5)
[2016-12-09 09:49] LABS: CALCIUM SERUM 9.1 mg/dL (8.4-10.2); CREATININE SERUM 1.5 mg/dL (0.6-1.4); POTASSIUM 3.9 mmol/L (3.5-5.1)
[2016-12-10 10:19] LABS: HEMOGLOBIN 9.9 gm/dL (12.0-16.0); MEAN CELL VOLUME 78.3 FL (83-96); MEAN CORPUSCULAR HEMOGLOBIN 24.9 PG (28-34); MEAN CORPUSCULAR HGB CONC 31.8 g/dL (30-36); MEAN PLATELET VOLUME 8.5 FL (6.5-11.5); RED BLOOD COUNT 3.96 X10e (3.90-5.30); RED CELL DISTRIBUTION WIDTH 14.7 % (11.0-15.5)
[2016-12-10 10:43] LABS: BUN/CREATININE RATIO 19.28; CALCIUM SERUM 9.2 mg/dL (8.4-10.2); CREATININE SERUM 1.4 mg/dL (0.6-1.4); GLOM FILT RATE Estimated 40.2 mL/min (>60); POTASSIUM 3.9 mmol/L (3.5-5.1)
[2016-12-11 06:20] LABS: HEMATOCRIT 31.6 % (35.0-45.0); MEAN CELL VOLUME 78.5 FL (83-96); MEAN CORPUSCULAR HEMOGLOBIN 24.8 PG (28-34); MEAN CORPUSCULAR HGB CONC 31.6 g/dL (30-36); MEAN PLATELET VOLUME 8.3 FL (6.5-11.5); RED BLOOD COUNT 4.03 X10e (3.90-5.30); RED CELL DISTRIBUTION WIDTH 14.9 % (11.0-15.5)
[2016-12-11 07:24] LABS: BUN/CREATININE RATIO 19.41; CALCIUM SERUM 9.4 mg/dL (8.4-10.2); CREATININE SERUM 1.7 mg/dL (0.6-1.4); GLOM FILT RATE Estimated 31.8 mL/min (>60); POTASSIUM 3.3 mmol/L (3.5-5.1)
[2016-12-11 15:12] LABS: CREATININE,RANDOM URINE 54 mg/dL; SODIUM URINE RANDOM 91 mmol/L; TOTAL PROTEIN,RANDOM URINE 24 mg/dl (<10)
[2016-12-12 14:07] LABS: HEMATOCRIT 29.3 % (35.0-45.0); HEMOGLOBIN 9.3 gm/dL (12.0-16.0); MEAN CELL VOLUME 77.7 FL (83-96); MEAN CORPUSCULAR HEMOGLOBIN 24.8 PG (28-34); MEAN CORPUSCULAR HGB CONC 31.9 g/dL (30-36); MEAN PLATELET VOLUME 8.4 FL (6.5-11.5); RED BLOOD COUNT 3.77 X10e (3.90-5.30); RED CELL DISTRIBUTION WIDTH 14.4 % (11.0-15.5)
[2016-12-12 14:43] LABS: CALCIUM SERUM 8.9 mg/dL (8.4-10.2); CREATININE SERUM 1.6 mg/dL (0.6-1.4); GLOM FILT RATE Estimated 34.2 mL/min (>60); POTASSIUM 3.9 mmol/L (3.5-5.1)
== END 2016-12-12 16:59 | DRG 177 ==
LOC: CED 22:56 → C3A PCU 12-06 03:20 → CEDOF 12-06 03:20 → CED 12-06 03:23 → C3A PCU 12-06 03:23 → CEDOF 12-06 05:19 → C3A PCU 12-06 05:19
PROVIDERS: Family Medicine; Internal Medicine; Nurse Practitioner Family
PROC: B24BZZZ Ultrasonography of Heart with Aorta (ICD-10-PCS; principal; 2016-12-09)
DX: J69.0 Pneumonitis due to inhalation of food and vomit (principal); G92 Toxic encephalopathy; N17.9 Acute kidney failure, unspecified; E87.2 Acidosis; I13.0 Hypertensive heart and chronic kidney disease with heart failure and stage 1 through stage 4 chronic kidney disease, or unspecified chronic kidney disease; N12 Tubulo-interstitial nephritis, not specified as acute or chronic; I50.30 Unspecified diastolic (congestive) heart failure; E11.22 Type 2 diabetes mellitus with diabetic chronic kidney disease; N39.0 Urinary tract infection, site not specified; I69.354 Hemiplegia and hemiparesis following cerebral infarction affecting left non-dominant side; R13.10 Dysphagia, unspecified; G30.9 Alzheimer's disease, unspecified; F02.80 Dementia in other diseases classified elsewhere, unspecified severity, without behavioral disturbance, psychotic disturbance, mood disturbance, and anxiety; E66.01 Morbid (severe) obesity due to excess calories; D63.1 Anemia in chronic kidney disease; I25.10 Atherosclerotic heart disease of native coronary artery without angina pectoris; Z79.82 Long term (current) use of aspirin; Z79.01 Long term (current) use of anticoagulants; Z86.711 Personal history of pulmonary embolism; N18.3 Chronic kidney disease, stage 3 (moderate); E03.9 Hypothyroidism, unspecified; K21.9 Gastro-esophageal reflux disease without esophagitis; Z90.710 Acquired absence of both cervix and uterus; Z88.2 Allergy status to sulfonamides; Z79.4 Long term (current) use of insulin; I25.2 Old myocardial infarction; I65.21 Occlusion and stenosis of right carotid artery; J15.6 Pneumonia due to other Gram-negative bacteria; I34.0 Nonrheumatic mitral (valve) insufficiency; Z66 Do not resuscitate
CPT/HCPCS: 36415; 71010; 71250; 74230; 80048; 80053; 80076; 80202; 81003; 82553; 82570; 82607; 82947; 83036; 83605; 83735; 84156; 84300; 84443; 84484; 85025; 85027; 87040; 87077; 87086; 87186; 92526; 92610; 92611; 93005; 93306; 94640; 94760; 96365; 96366; 99285; C9113; G8996-GN; G8997-GN; G8998-GN; J0692; J1815; J2930; J3260; J3370

== ENCOUNTER → 2017-01-24 | Outpatient (CLI) | payer MEDICARE, OTHER ==
[~2017-01-24] MED LIST changes: +BENADRYL25 M1 PO; +BRILINTA90 MG PO; +CENTRUM PO; +DEPAKOTE250 MG PO; +EXELON PO; +FLORASTORKIDS250 MG PO; +HYDROCODON-ACE1 EAC7 PO; +IMDUR PO; +KCL PO; +MELATONIN10 M2 PO; +METOPROLOL TAR25 MG PO; +NOVOLOG100 UNITS/ SUBQ; +PANTOPRAZOLE SO40 MG PO; +TRESIBA FL100 UNIT/1 SUBQ; +TYL325 PO; +VITAMIN D31000 UNIT PO; +ZYRTEC PO; +ZYRTEC10 M2 PO
--- NOTE | ~2017-01-24 | CT57 ---
[facility] A Service of [facility] RADIOLOGY TEXT RESULTS PATIENT: JUAN RONDON LOCATION: [facility] : [birth year] UNIT #: [id number] AGE: [address]: Figueroa Medina MD SEX: F ORDER DR: [id number] [place] [id number] [facility] [place], [place] [address] [id number] MR#: [id number] Acc #: [id number] NAME: JUAN RONDON : 1935 SEX: F STUDY DATE/TIME: 01/24/2017 14:24 UNIT: [facility] ROOM: STUDY DESCRIPTION: CT Chest Wo Cont Attending Physician: Figueroa Medina M.D. Referring Physician: Figueroa Medina M.D. Ordering Physician: Figueroa Medina M.D. Primary Care Physician: Figueroa Medina M.D. MEDICAL IMAGING REPORT This report is preliminary unless electronic signature is present EXAM CT chest INDICATIONS Aspiration pneumonia. Follow up. 6 weeks duration. Shortness of air for 2-[address] of the chest without contrast. Coronal and sagittal reconstructions were obtained. This CT exam was performed with one or more of the following radiation dose reduction techniques: automatic exposure control, adjustment of mA and/or kV according to patient size, and iterative reconstruction. COMPARISON CT chest 12/06/2016, 11/29/2015, 11/14/2015. FINDINGS The patchy airspace opacity in the right lower lobe has resolved. There are no new pulmonary opacities. 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 There are some chronic interstitial opacities. There is background COPD. There is a benign calcified granuloma in the left lower lobe. There is no pericardial or pleural effusion. Heart is enlarged. Thoracic aorta is normal in caliber. Limited images of the upper abdomen were obtained. There are no acute findings. IMPRESSION 1. Resolved right lower lobe airspace opacity. [facility] A Service [facility] RADIOLOGY TEXT RESULTS PATIENT: JUAN RONDON LOCATION: [facility] : [birth year] UNIT #: [id number] AGE: [address]: Figueroa Medina MD SEX: F ORDER DR: 2. COPD. 3. Cardiomegaly. Dictated by... Sd Goodwin M.D. THIS IS AN ELECTRONICALLY VERIFIED REPORT Sd Goodwin M.D. at 01/27/2017 6:05 AM KIERAN/juan f TD: 01/25/2017 18:52 JOB #: [id number] MEDICAL IMAGING REPORT Page 1 of 1 COPY
== END | disposition home or self-care (01) ==
LOC: EDBD 13:29 → CCAT 13:29
DX: J69.0 Pneumonitis due to inhalation of food and vomit (principal); J44.9 Chronic obstructive pulmonary disease, unspecified; I51.9 Heart disease, unspecified
CPT/HCPCS: 71250

== ENCOUNTER 2017-03-01 14:53 | Emergency (ER) | payer MEDICARE, OTHER ==
[~2017-03-01] VITALS: Ht 157.5 cm; Wt 90.7 kg
--- NOTE | ~2017-03-01 | CT71 ---
[facility] A Service of [facility] RADIOLOGY TEXT RESULTS PATIENT: JUAN RONDON LOCATION: [facility] : [birth year] UNIT #: [id number] AGE: [address]: Gorge Cano MD SEX: F ORDER DR: [id number] [facility] [address] [place], [place] [address] [id number] MR#: [id number] #: [id number] NAME: JUAN RONDON : 08/30/1937 SEX: F STUDY DATE/TIME: 03/01/2017 16:28 UNIT: DONI ROOM: STUDY DESCRIPTION: CT Head Wo Contrast Attending Physician: Gorge Cano M.D. Ordering Physician: Gorge Cano M.D. Primary Care Physician: Figueroa Medina M.D. MEDICAL IMAGING REPORT This report is preliminary unless electronic signature is present EXAM Head CT, no contrast, 03/01/2017 PROCEDURE Axial unenhanced head CT. This CT exam was performed with one or more of the following radiation dose reduction techniques: automatic exposure control, adjustment of mA and/or kV according to patient size, and iterative reconstruction. COMPARISON Prior head CT dated 02/07/2016 CLINICAL HISTORY Increasing confusion and difficulty concentrating. FINDINGS There is volume loss and nonspecific white matter change as well as a more focal area of encephalomalacia adjacent to the frontal horn of the right lateral ventricle. Findings are stable when compared to the prior study. There is no hemorrhage or mass or hydrocephalus or extraaxial fluid collection. The extracranial soft tissues, skull base and calvarium are unremarkable except for sphenoid sinus mucosal thickening. IMPRESSION No acute intracranial abnormality. Chronic changes in the brain are stable when compared to 02/07/2016. There is right sphenoid sinus mucosal disease but otherwise no acute abnormality is seen. Dictated by... Karel Cornelius M.D. [facility] A Service of [facility] RADIOLOGY TEXT RESULTS PATIENT: JUAN RONDON LOCATION: [facility] : [birth year] UNIT #: [id number] AGE: [address]: Gorge Cano MD SEX: F ORDER DR: THIS IS AN ELECTRONICALLY VERIFIED REPORT Karel Cornelius M.D. at 03/02/2017 4:59 PM JERONIMO/purvi TD: 03/01/2017 21:28 JOB #: [id number] MEDICAL IMAGING REPORT Page 1 of 1 COPY
--- NOTE | ~2017-03-01 | EKG ---
PATIENT: JUAN RONDON UNIT #: [id number] Ventricular Rate: 70 BPM Atrial Rate: 70 BPM P-R Interval: 172 ms QRS Duration: 90 ms Q-T Interval: 546 ms QTC Calculation(Bezet): 589 ms P [place]: 17 degrees Calculated R [place]: -2 degrees Calculated T [place]: -9 degrees Diagnosis Line: Normal sinus rhythm Diagnosis Line: Minimal voltage criteria for LVH, may be normal Diagnosis Line: variant Diagnosis Line: Nonspecific ST and T wave abnormality Diagnosis Line: Abnormal ECG Diagnosis Line: When compared with ECG of 05-DEC-2016 23:57, Diagnosis Line: T wave inversion now evident in Inferior leads Diagnosis Line: T wave inversion now evident in Lateral leads Diagnosis Line: QT has lengthened Diagnosis Line: Confirmed by ANSON MARQUES MD ([id number]) on 03/02/2017 Diagnosis Line: 10:24:10 PM INTERPRETING MD: JERALD CERVANTES
--- NOTE | ~2017-03-01 | CR72 ---
[facility] A Service of [facility] & [facility] RADIOLOGY TEXT RESULTS PATIENT: JUAN RONDON LOCATION: [facility] : [birth year] UNIT #: [id number] AGE: [address]: Gorge Cano MD SEX: F ORDER DR: [id number] [facility] [address] [place], [place] [address] [id number] MR#: [id number] Acc #: [id number] NAME: JUAN RONDON : 08/30/1937 SEX: F STUDY DATE/TIME: 03/01/2017 15:34 UNIT: [facility] ROOM: STUDY DESCRIPTION: CR Chest Single View Portable Attending Physician: Gorge Cano M.D. Ordering Physician: Gorge Cano M.D. Primary Care Physician: Figueroa Medina M.D. MEDICAL IMAGING REPORT This report is preliminary unless electronic signature is present EXAM Portable chest INDICATIONS Left-sided weakness and shortness of breath today. COMPARISON 12/12/2016 FINDINGS Lungs are well expanded. No airspace consolidation. Heart size stable. Calcified granuloma, left base. Atherosclerotic calcification of the aorta. Carotid calcifications on the left. IMPRESSION No active disease. Dictated by... Jerome Mccall M.D. THIS IS AN ELECTRONICALLY VERIFIED REPORT Jerome Mccall M.D. at 03/03/2017 7:56 AM Neyda TD: 03/01/2017 18:59 JOB #: [id number] MEDICAL IMAGING REPORT Page 1 of 1 COPY
[~2017-03-01 14:53] MED LIST changes: -DEPAKOTE250 MG PO; -EXELON PO; -FLORASTORKIDS250 MG PO; -HYDROCODON-ACE1 EAC7 PO; -IMDUR PO; -KCL PO; -PANTOPRAZOLE SO40 MG PO; -TRESIBA FL100 UNIT/1 SUBQ; -TYL325 PO; -VITAMIN D31000 UNIT PO; -ZYRTEC10 M2 PO
[2017-03-01 15:33] LABS: BASOPHIL% 0.5 % (0-2.5); EOSINOPHIL# 0.3 X10e3 (0-0.7); EOSINOPHIL% 3.4 % (0.0-7.0); HEMATOCRIT 36.7 % (35.0-45.0); HEMOGLOBIN 11.7 gm/dL (12.0-16.0); LYMPHOCYTE# 1.9 X10e3 (1.0-3.5); LYMPHOCYTE% 20.7 % (17.0-45.0); MEAN CELL VOLUME 79.3 FL (83-96); MEAN CORPUSCULAR HEMOGLOBIN 25.2 PG (28-34); MEAN CORPUSCULAR HGB CONC 31.8 g/dL (30-36); MEAN PLATELET VOLUME 7.9 FL (6.5-11.5); MONOCYTE# 0.7 X10e3 (0-1.0); MONOCYTE% 7.3 % (3.0-12.0); NEUTROPHIL# 6.1 X10e3 (1.5-7.1); NEUTROPHIL% 68.1 % (40-75); PLATELET COUNT 156 X10e3 (140-420); RED BLOOD COUNT 4.63 X10e (3.90-5.30); RED CELL DISTRIBUTION WIDTH 16.7 % (11.0-15.5)
[2017-03-01 15:34] LABS: DIFF IND NO
[2017-03-01] MEDS ORDERED: ASPIRIN81 M2 PO (15:49)
[2017-03-01] MEDS ORDERED: NOVOLOG100 UNITS/ SUBQ (15:49)
[2017-03-01] MEDS ORDERED: TRESIBA FL100 UNIT/1 SUBQ (15:49)
[2017-03-01] MEDS ORDERED: LOPRESSOR PO (15:50)
[2017-03-01] MEDS ORDERED: MILK OF MAGNESIA PO (15:52)
[2017-03-01] MEDS ORDERED: LIPITOR40 MG PO (15:52)
[2017-03-01] MEDS ORDERED: BUMEX1 MG PO (15:52)
[2017-03-01] MEDS ORDERED: EXELON PO (15:52)
[2017-03-01] MEDS ORDERED: KCL PO (15:53)
[2017-03-01] MEDS ORDERED: CENTRUM PO (15:53)
[2017-03-01] MEDS ORDERED: NAMENDA XR28 MG PO (15:53)
[2017-03-01] MEDS ORDERED: PANTOPRAZOLE SO40 MG PO (15:53)
[2017-03-01] MEDS ORDERED: TYL325 PO (15:53)
[2017-03-01] MEDS ORDERED: SYNTHROID PO (15:53)
[2017-03-01] MEDS ORDERED: BENADRYL25 M1 PO (15:54)
[2017-03-01] MEDS ORDERED: VITAMIN D31000 UNIT PO (15:54)
[2017-03-01] MEDS ORDERED: ZYRTEC10 M2 PO (15:54)
[2017-03-01] MEDS ORDERED: IMDUR PO (15:54)
[2017-03-01] MEDS ORDERED: LEXAPRO PO (15:54)
[2017-03-01] MEDS ORDERED: DEPAKOTE250 MG PO (15:55)
[2017-03-01] MEDS ORDERED: FLORASTORKIDS250 MG PO (15:55)
[2017-03-01] MEDS ORDERED: HYDROCODON-ACE1 EAC7 PO (15:55)
[2017-03-01 16:08] LABS: ALBUMIN SERUM 3.5 g/dL (3.5-5.0); BILIRUBIN, DIRECT 0.1 mg/dL (0.0-0.2); BILIRUBIN,INDIRECT 0.3 mg/dL (0.0-0.9); BILIRUBIN,TOTAL 0.4 mg/dL (0.2-2.0); BUN/CREATININE RATIO 20.71; CALCIUM SERUM 9.6 mg/dL (8.4-10.2); CREATININE SERUM 1.4 mg/dL (0.6-1.4); GLOM FILT RATE Estimated 40.7 mL/min (>60); POTASSIUM 4.1 mmol/L (3.5-5.1); PROTEIN TOTAL SERUM 6.9 g/dL (6.0-8.3)
[2017-03-01 16:14] LABS: URINE APPEARANCE CLEAR; URINE BILIRUBIN NEG (NEG); URINE BLOOD NEG (NEG); URINE COLOR YELLOW; URINE GLUCOSE NEG (NEG); URINE KETONE NEG (NEG); URINE LEUKOCYTE ESTERASE TRACE (NEG); URINE NITRATE NEG (NEG); URINE PH 6.5 (5-8); URINE PROTEIN NEG (NEG); URINE SPECIFIC GRAVITY 1.015 (1.003-1.035); URINE UROBILINOGEN 0.2 MG/DL (NEG)
[2017-03-01 16:15] LABS: URBCS1 AUWI 0-2 /[HPF] (0-2); URINE BACTERIA AUWI NEG (NEGATIVE); URINE SQUAMOUS EPITHELIAL CELL FEW /[HPF]
[2017-03-01 16:18] LABS: CULTURE INDICATED? NO
== END 2017-03-01 19:11 | disposition short-term general hospital (02) ==
LOC: CED 14:53
PROVIDERS: Emergency Medicine
DX: F03.90 Unspecified dementia, unspecified severity, without behavioral disturbance, psychotic disturbance, mood disturbance, and anxiety (principal); E11.9 Type 2 diabetes mellitus without complications; E78.5 Hyperlipidemia, unspecified; I10 Essential (primary) hypertension; F32.9 Major depressive disorder, single episode, unspecified; Z86.73 Personal history of transient ischemic attack (TIA), and cerebral infarction without residual deficits; Z90.710 Acquired absence of both cervix and uterus; Z98.51 Tubal ligation status; Z90.89 Acquired absence of other organs; Z79.4 Long term (current) use of insulin; Z79.82 Long term (current) use of aspirin; Z79.899 Other long term (current) drug therapy; Z88.2 Allergy status to sulfonamides
CPT/HCPCS: 36415; 70450; 71010; 80048; 80076; 81003; 82947; 85025; 93005; 99285